=== PATIENT | male | born 1975 | race Caucasian/White ===

== ENCOUNTER 2023-12-26 21:37 | Emergency (ER) | payer OTHER, SELFPAY ==
[2023-12-26 21:43] VITALS: BP 140/104
[2023-12-26 21:55] LABS: % Basophils 0.7 % (0-2); % Eosinophils 7.7 % (0-6); % Immature Granulocytes 0.2 % (0-0.5); % Lymphocytes 39.7 % (20.5-51.1); % Monocytes 8.4 % (1.7-9.3); % Neutrophils 43.3 % (42.2-75.2); Absolute Basophils 0.1 10^3/uL (0-0.2); Absolute Eosinophils 0.7 10^3/uL (0-0.7); Absolute Lymphocytes 3.4 10^3/uL (1.2-3.4); Absolute Monocytes 0.7 10^3/uL (0.1-0.6); Absolute Neutrophils 3.7 10^3/uL (1.4-6.5); Hemoglobin 16.5 g/dL (13.0-18.0); Mean Corp Hgb Conc. 37.5 g/dL (33.0-37.0); Mean Corpuscular Volume 85.4 fL (80.0-94.0); Mean Platelet Volume 8.9 fL (7.4-10.4); Nucleated Red Blood Cells % 0 % (-); Platelet Count 295 10^3/uL (130-400); Red Blood Cell Count 5.15 10^6/uL (4.70-6.10); Red Cell Dist. Width 11.6 % (11.5-14.5); White Blood Cell Count 8.4 10^3/uL (4.8-10.8)
[2023-12-26 22:09] LABS: ALT (SGPT) 46 U/L (0-50); AST (SGOT) 42 U/L (17-59); Albumin 4.6 g/dl (3.5-5.0); Alkaline Phosphatase 72 U/L (38-126); Blood Urea Nitrogen 16 mg/dl (9-20); Calcium 9.5 mg/dl (8.4-10.2); Carbon Dioxide 22 mmol/L (22-30); Chloride 105 mmol/L (98-107); Glucose 130 mg/dl (70-99); Potassium 3.9 mmol/L (3.5-5.1); Sodium 135 mmol/L (135-145); Total Bilirubin 0.6 mg/dl (0.2-1.3); Total Protein 7.6 g/dl (6.3-8.2); eGFR > 60.00
--- NOTE | 2023-12-27 00:19 | ED.GENMED ---
History of Present Illness
General
Chief Complaint: Abdominal Symptoms
Source: patient
Exam Limitations: none
Time Seen by Provider: 12/26/23 23:39
Travel History
Have you had any contact with someone who has COVID-19?: No
Do you have any symptoms of coronavirus? Fever > 100 degrees, chills, cough, shortness of breath, sore throat, loss of taste or smell, muscle aches, or headache?: No
History of Present Illness
History of Present Illness:
This is a 48 year old male that comes in with c/o cough. States that he has had this cough for over a week. States that he went to the ENT and was told that he had reflux. Patient was place on Prilosec BID. States that he does ok during the day and
then around 6:30pm he started again with the coughing. States that he was up last night from 12 midnight till 4am. States that he almost vomited. Then today he started again after dinner and he vomited. States that he had gone back to the ENT and
that was when he increased the Prilosec to BID, put him on Gabapentin 100mg daily and gave him Promethazine DM 5m at HS. States that this helped some but then tonight he vomtied, felt SOB and has a headache. Denies any fever, chills, chest pain, abd
pain, nausea, diarrhea, dizziness, urinary burning.
Past History
Past History
ED Past Medical History: GERD
ED Past Surgical History: None
Social History
Tobacco: Former smoker
Alcohol: Daily (Beer 10-12 cans)
Personal:
Living: with family
Review of Systems
Review of Systems
All Other Systems: ROS reviewed and negative except as documented in HPI and ROS
Constitutional: Reports no symptoms; Denies fever or chills
EENT: Reports no symptoms
Respiratory: Reports cough and trouble breathing
Cardiac: Reports no symptoms; Denies chest pain
ABD/GI: Reports vomiting; Denies abdominal pain, nausea or diarrhea
: Reports no symptoms; Denies dysuria, frequency or urgency
Musculoskeletal: Reports no symptoms
Skin: Reports no symptoms
Neurological: Reports headache; Denies dizzy
Psychiatric: Reports no symptoms
Phy Exam
General Physical Exam
General Presentation: no apparent distress
General age: appears stated age
General Skin: warm and dry
General Habitus: normal
General Mental: alert
General Hydration: appears well hydrated
ENT Exam
ENT Exam: TM's normal, pharynx normal and neck supple
Eye Exam
Eye Exam: EOMI
Cardiovascular Exam
Cardiovascular Exam: regular rate/rhythm, no edema, no murmur and normal peripheral pulses
Pulmonary Exam
Pulmonary Exam: no respiratory distress, no rales, chest non tender, no crackles, no rhonchi and other (Faint wheezing noted with Dry cough)
Gastrointestinal Exam
Gastrointestinal Exam: normal bowel sounds, non tender, soft, no organomegaly, no pulsatile mass and non distended
Musculoskeletal Exam
Musculoskeletal Exam: full ROM and no edema
Skin Exam
Skin Exam: normal color, warm/dry, no rash and no petechia
Psychiatric Exam
Psychiatric Exam: normal mood/affect
Course
Orders/Labs/Results
Orders:
Orders
12/26/23 21:50
CMP [Comprehensive Metabolic Panel] Urgent
Complete Blood Count/With Diff Urgent
Lipase Urgent
Comment: ADD ON
12/26/23 23:40
Add On- LAB Urgent
Tests Added?: lipase
12/26/23 23:51
Dexamethasone Sod Phosphate [Decadron] 20 mg IV NOW STA
Ipratropium/Albuterol Sulfate [Duoneb] 3 ml INH R NOW ONE
12/26/23 23:52
D-Dimer Urgent
12/27/23 00:00
CR Chest - 2 Views Urgent
Reason For Exam: Cough, SOB
12/27/23 01:15
CT Chest Pe Study Urgent
Comment:
Reason For Exam: sob, cOUGH, ELEVATED d-DIMER
12/27/23 02:42
Acetaminophen [Tylenol] 1,000 mg PO NOW STA
Ketorolac [Toradol] 30 mg IV NOW STA
Abnormal Lab Results
12/26/23 12/27/23
21:50 00:14
MCH 32.0 H pg
(27.0-31.0)
MCHC 37.5 H g/dL
(33.0-37.0)
Absolute Monos (auto) 0.7 H 10^3/uL
(0.1-0.6)
Eosinophils % 7.7 H %
(0-6)
D-Dimer 0.56 H ug/mlFEU
(0.00-0.50)
Glucose 130 H mg/dl
(70-99)
12/26/23 21:50
12/26/23 21:50
glucose nonfasting, D-dimer slightly elevated. Lipase normal at 138.
Vital Signs
Initial and Last Documented VS:
Initial Vital Signs
Temp Pulse Resp BP Pulse Ox
98.2 F 104 26 140/104 97
12/26/23 21:43 12/26/23 21:43 12/26/23 21:43 12/26/23 21:43 12/26/23 21:43
Last Documented Vital Signs
Temp Pulse Resp BP Pulse Ox
98.2 F 104 26 140/104 97
12/26/23 21:43 12/26/23 21:43 12/26/23 21:43 12/26/23 21:43 12/26/23 23:26
MDM/Problems Addressed
Differential Diagnosis Includes:
Wheezing, PE,
MDM/Problems Addressed:
This is a 48 year old male that comes in with c/o cough and SOB. States that this noriega been going on for over a week. States that he has seen the ENT specialist twice. Patient is taking Prilosec BID, Gabapentin daily and Promethazine DM 5 mg before
bed.
Will check labs, Chest x-ray, Give Duo neb, steroids
Back into see patient. patient states that he is feeling a little better. Explained that his D-dimer is a little elevated so will get a CT of the chest. Explained that it may be elevated due to inflammation. Will place patient on Steroids for home.
Into see patient. Explained that the CT of the chest is negative for any PE. There is some left sided nodules noted that could be infectious or Inflammatory. They are most likely inflammatory as patient has wheezing. Patient does not have a fever
and WBC are normal. Will start patient on a steroid for the next 5 days. Will give patient a prescription fo Albuterol inhaler and encouraged patient to stay away form caffeine. Will also stop the Prilosec and place patient on Protonix. Patient to
increased his water intake and follow up with the Family doctor. Return with any concerns.
Chronic conditions affecting care:
NA
Acute Exacerbation and/or Progression of Chronic Illness:
NA
*Radiology
Radiology exam reviewed: radiology read reviewed (CT CHEST NIGHT HAWK-Adequate technical study. No pulmonary embolism. No thoracic aortic aneurysm or acute dissection. Scattered pulmonary nodules within the left lower lobe, may be infectious or
inflammatory. Bibasilar atelectasis. Thickening of the airways. Incidentals: No acute osseous abnormality) and other (CT cont- no acute abnormality within the visualized abdomen. No thoracic lymphadenopathy or suspicious lymph nodes. )
*Pulse Oximetry
Patient hypoxic: no
*EKG
Interpreted by ED Provider?: NA
Rate: EKG- N/A
*Rocket Assembly Operator Interpretation
Rate: Rocket Assembly Operator- N/A
*Critical Care Note
Total Time (30-74mins, 75-104mins- exclusive of procedures): Not Applicable
ED Attending Note
-
Portions of this chart may have been created with voice recognition software.� Occasional wrong word or��sound alike� substitutions may have occurred due to the inherent limitations of voice recognition software.
Discharge Plan
Departure
Patient Disposition: Home (Routine Discharge)
Date of Disposition: 12/27/23
Time of Disposition: 02:31
Patient with high blood pressure during this ER visit?: No
Condition: Good
Covid-19: Not Applicable
Discharge Problem:
Bilateral wheezing, Cough
Instructions: Wheezing, Cough, Adult (DC)
Prescriptions:
New
prednisone 20 mg tablet
40 mg PO DAILY Qty: 10 0RF
pantoprazole [Protonix] 40 mg tablet,delayed release (DR/EC)
40 mg PO DAILY Qty: 30 0RF
albuterol sulfate [ProAir HFA] 90 mcg/actuation HFA aerosol inhaler
2 puff inhalation Q6H PRN (Reason: shortness of breath or wheezing) Qty: 6.7 0RF
Referrals:
Romie Hyatt DO [Family Provider] - Follow up in 2-3 days
Activity Restrictions/Additional Instructions:
As discussed, your blood work is normal. Your CT is negative for PE but there is some Nodules noted on the left lung base. This can be inflammatory or infectious. The fact that your White count is normal and you have no fever it is most likely
inflammatory. You have been given IV steroids here and a prescription for Steroids for home for the next 5 days. Please stop the Prilosec and start the Protonix to help with your Reflux. This is also just once daily. You may take this at Bedtime to
help prevent any reflux. Please stay away form any Caffeine as this worsens your Reflux. The last Prescription that has been sent to your Pharmacy is the Albuterol inhaler. Please use this for any wheezing, increased coughing or shortness of breath.
Follow up with the family doctor in the next 2- 3 days for recheck. Please try and cut back on your alcohol intake. Please increase your water intake to 8-8oz glasses daily. IF YOU HAVE ANY OTHER CONCERNS PLEASE RETURN TO THE EMERGENCY ROOM.
Interventions
Interventions:
*Risk Screen - Suicide Last Done: 12/26/23 21:43
*General Assessment Last Done: 12/26/23 23:26
*Neglect/Abuse Screening Last Done: 12/26/23 21:43
ED- Fall Risk Assessment Last Done: 12/26/23 23:26
*ED COVID-19 Vaccine History Last Done: 12/26/23 23:26
ZR-Rtkrul-Jwjoivfqmu Assessment Last Done: 12/26/23 23:26
ED- Pulmonary Assessment Last Done: 12/26/23 23:26
Discharge Date and Time
Print Language: MACEDONIAN
[2023-12-27 00:24] LABS: Lipase 138 U/L (23-300)
[2023-12-27] MEDS: DECADRON 20 MG IV (00:29)
[2023-12-27] MEDS: DUONEB 3 ML INH (00:29)
[2023-12-27 00:37] LABS: D-Dimer 0.56 ug/mlFEU (0.00-0.50)
[2023-12-27 01:52] VITALS: BP 118/72
[2023-12-27 02:00] VITALS: BP 119/81
[2023-12-27] MEDS: TYLENOL 1000 MG PO (02:55)
[2023-12-27] MEDS: TORADOL 30 MG IV (02:58)
[2023-12-27 03:00] VITALS: BP 122/78
[2023-12-27 03:15] VITALS: BP 122/78
--- NOTE | 2024-01-08 10:15 | OID.L.PAT ---
Pulmonary Nodule Pat Letter
- -
01/08/24
VANESSA ELDER
[address] [place] [address]
[place] [address]
Jose MENDEZ,
A pulmonary nodule was seen on an imaging study done by [facility]. This was reviewed by the [facility] Pulmonary Nodule Advisory Board and the following recommendation was made:
Recommendation: CT Chest in one year
If you have any questions, please do not hesitate to contact your primary care physician. If you are in need of a Physician, you can go to [email or web address] and click on 'Find a Provider'. Type 'Family Medicine' in the search.
Oncology Nurse Navigator
[facility]
[phone]
--- NOTE | 2024-01-08 10:19 | OID.L.REC ---
Pulmonary Nodule Follow Up
- Recommendation
01/08/24
Pulmonary Nodule Review Recommendations
Your patient, VANESSA ELDER, had a pulmonary nodule on an imaging study done on 12/27/2023 in the [facility].
This was reviewed by the [facility] Pulmonary Nodule Advisory Board and the following recommendation was made:
Recommendation: CT Chest in one year
If you have any questions please do not hesitate to contact us.
Sincerely,
Oncology Nurse Navigator
[facility]
[phone]
== END 2023-12-27 03:15 | disposition home or self-care (01) ==
LOC: EMR 21:37
PROVIDERS: Clinical Nurse Specialist Family Health; Emergency Medicine; EMERGENCY PHYSICIAN Student in an Organized Health Care Education/Training Program; FAMILY PHYSICIAN Family Medicine
DX: R05.9 Cough, unspecified (principal); R06.2 Wheezing; R22.2 Localized swelling, mass and lump, trunk; Z87.891 Personal history of nicotine dependence
CPT/HCPCS: 99285; 96374; 96375; 94640; 71046; 71275; 80053; 83690; 85025; 85379; Q9967

== ENCOUNTER 2024-08-25 10:59 | Emergency (ER) | payer BC, SELFPAY ==
[2024-08-25] VITALS (7 sets, daily range): BP systolic 100–128; BP diastolic 69–80
[2024-08-25 12:18] LABS: Urine Albumin Negative (Neg - Trace); Urine Bilirubin Negative (Negative); Urine Character Clear (Clear); Urine Color Yellow; Urine Glucose Negative (Negative); Urine Ketone 1+ (Negative); Urine Leukocyte Negative (Negative); Urine Nitrite Negative (Negative); Urine Occult Blood Negative (Negative); Urine Urobilinogen Negative (Neg - 1+)
[2024-08-25 12:19] LABS: % Basophils 0.5 % (0-2); % Eosinophils 1.6 % (0-6); % Immature Granulocytes 0.4 % (0-0.5); % Lymphocytes 25.7 % (20.5-51.1); % Neutrophils 63.8 % (42.2-75.2); Absolute Eosinophils 0.1 10^3/uL (0-0.7); Absolute Lymphocytes 2.1 10^3/uL (1.2-3.4); Absolute Monocytes 0.7 10^3/uL (0.1-0.6); Absolute Neutrophils 5.3 10^3/uL (1.4-6.5); Hematocrit 48.2 % (39.0-52.0); Hemoglobin 17.6 g/dL (13.0-18.0); Mean Corp Hgb Conc. 36.5 g/dL (33.0-37.0); Mean Corpuscular Hgb 32.2 pg (27.0-31.0); Mean Corpuscular Volume 88.3 fL (80.0-94.0); Mean Platelet Volume 8.9 fL (7.4-10.4); Nucleated Red Blood Cells % 0 % (-); Platelet Count 238 10^3/uL (130-400); Red Blood Cell Count 5.46 10^6/uL (4.70-6.10); Red Cell Dist. Width 11.9 % (11.5-14.5); White Blood Cell Count 8.3 10^3/uL (4.8-10.8)
[2024-08-25 12:33] LABS: ALT (SGPT) 33 U/L (0-50); AST (SGOT) 25 U/L (17-59); Albumin 4.4 g/dl (3.5-5.0); Alkaline Phosphatase 55 U/L (38-126); Blood Urea Nitrogen 14 mg/dl (9-20); Calcium 9.7 mg/dl (8.4-10.2); Carbon Dioxide 28 mmol/L (22-30); Chloride 104 mmol/L (98-107); Glucose 99 mg/dl (70-99); Lipase 74 U/L (23-300); Potassium 4.1 mmol/L (3.5-5.1); Sodium 140 mmol/L (135-145); Total Bilirubin 1.1 mg/dl (0.2-1.3); Total Protein 7.1 g/dl (6.3-8.2); eGFR > 60.00
[2024-08-25 12:45] LABS: Troponin I < 0.012 ng/ml
--- NOTE | 2024-08-25 14:30 | ED.GENMED ---
History of Present Illness
General
Chief Complaint: Flank Pain
Time Seen by Provider: 08/25/24 14:04
History of Present Illness
History of Present Illness:
Patient presents to the emergency department with severe right-sided lower chest/flank pain of sudden onset this morning at 10 AM. Patient states that he was putting car seats in his car when afterwards he suddenly had a severe right lower
rib/lateral thoracic pain. Pain radiated down right flank. Pain was worse with deep inspiration. Pain resolved on its own after arriving to the hospital. Denies any leg swelling. Denies any history of kidney stones or blood clots.
Past History
Past History
ED Past Medical History: GERD
ED Past Surgical History: None
Social History
Tobacco: Former smoker
Alcohol: Daily (Beer 10-12 cans)
Personal:
Living: with family
Phy Exam
Physical Exam
Physical Exam:
GENERAL APPEARANCE: NAD, well developed/ well nourished
EYES lids/conjunctiva normal
EARS/NOSE/THROAT Mucous membranes moist, uvula midline without oral pharyngeal erythema, exudate or swelling
HEAD/NECK normocephalic atraumatic, neck is supple.
RESPIRATORY respiratory effort normal, speaks in full sentences, no accessory muscle use. Lungs clear to auscultation without rhonchi, wheezes, rales
CARDIAC Regular rate and rhythm, no edema.
ABDOMINAL Soft, ND/NT. No pulsatile masses on exam, rebound tenderness, Elkins sign or pain over Mcburney's point.
MUSCLES/EXTREMITIES No abnormal range of motion, no swelling.
SKIN Warm, pink and dry. No rashes
NEUROLOGICAL Speech is clear and appropriate. Normal level of consciousness. 5/5 strength in all extremities.
PSYCH Normal mood and affect. Judgement/competence is appropriate
Course
Orders/Labs/Results
Orders:
Orders
08/25/24 11:05
Electrocardiogram (*1) Urgent
Reason for Study: Chest Pain
08/25/24 11:06
EKG- Treatment ONCE
08/25/24 12:04
Complete Blood Count/With Diff Urgent
Comprehensive Metabolic Panel Urgent
Lipase Urgent
Urinalysis Reflex To Culture Urgent
Date Specimen was Collected: 08/25/24
Time Specimen was Collected: 11:58
08/25/24 12:09
Troponin I Urgent
08/25/24 14:27
D-Dimer Urgent
08/25/24 15:01
CT Abd/pel Without Iv Or Oral Urgent
Comment:
Reason For Exam: R flank pain
Abnormal Lab Results
08/25/24
12:04
MCH 32.2 H pg
(27.0-31.0)
Absolute Monos (auto) 0.7 H 10^3/uL
(0.1-0.6)
Urine Ketones 1+ A
(Negative)
08/25/24 12:04
08/25/24 12:04
Vital Signs
Initial and Last Documented VS:
Initial Vital Signs
Temp Pulse Resp BP Pulse Ox
97.8 F 71 21 128/70 99
08/25/24 11:06 08/25/24 11:06 08/25/24 11:06 08/25/24 11:06 08/25/24 11:06
Last Documented Vital Signs
Temp Pulse Resp BP Pulse Ox
97.8 F 74 21 104/69 96
08/25/24 11:06 08/25/24 16:15 08/25/24 11:06 08/25/24 16:00 08/25/24 16:15
*Critical Care Note
Total Time (30-74mins, 75-104mins- exclusive of procedures): Not Applicable
ED Attending Note
ED Attending Note
ED Attending Note:
Patient symptoms concerning though they have resolved at this time. Differential includes thoracic radiculopathy, muscle spasm, kidney stone, pulmonary embolism, biliary pathology. Labs indicating normal white blood cell count, normal hemoglobin
and normal metabolic panel. Will send D-dimer. Plan to CT scan
patient feels much better at this time. Pain is positional. Suspect MSK pain. Will start NSAID and instruct close outpatient follow up
-
Portions of this chart may have been created with voice recognition software.� Occasional wrong word or��sound alike� substitutions may have occurred due to the inherent limitations of voice recognition software.
Discharge Plan
Departure
Patient Disposition: Home (Routine Discharge)
Date of Disposition: 08/25/24
Time of Disposition: 17:37
Patient with high blood pressure during this ER visit?: No
Discharge Problem:
Acute flank pain
Instructions: Flank Pain (DC)
Prescriptions:
New
naproxen 500 mg tablet
500 mg PO BID Qty: 14 0RF
No Action
prednisone 20 mg tablet
40 mg PO DAILY Qty: 10 0RF
pantoprazole [Protonix] 40 mg tablet,delayed release (DR/EC)
40 mg PO DAILY Qty: 30 0RF
albuterol sulfate [ProAir HFA] 90 mcg/actuation HFA aerosol inhaler
2 puff inhalation Q6H PRN (Reason: shortness of breath or wheezing) Qty: 6.7 0RF
Referrals:
Romie Hyatt DO [Family Provider] -
Activity Restrictions/Additional Instructions:
follow up with your doctor in the next week for recheck
return to ER if worse
Interventions
Interventions:
*Risk Screen - Suicide Last Done: 08/25/24 12:02
*General Assessment Last Done: 08/25/24 12:02
*Neglect/Abuse Screening Last Done: 08/25/24 12:02
*ED COVID-19 Vaccine History Last Done: 08/25/24 12:02
*Nursing Disposition Last Done: 08/25/24 17:49
OW-Apmoqp-Nswzjnczcx Assessment Last Done: 08/25/24 12:02
ED-Male Genitourinary Assessment Last Done: 08/25/24 12:02
Discharge Date and Time
Discharge Date/Time: 08/25/24 17:50
Print Language: KITTITIAN
[2024-08-25 14:47] LABS: D-Dimer 0.36 ug/mlFEU (0.00-0.50)
== END 2024-08-25 17:50 | disposition home or self-care (01) ==
LOC: EMR 10:59
PROVIDERS: Emergency Medicine; EMERGENCY PHYSICIAN Emergency Medicine; FAMILY PHYSICIAN Family Medicine
DX: R10.9 Unspecified abdominal pain (principal); K21.9 Gastro-esophageal reflux disease without esophagitis; Z87.891 Personal history of nicotine dependence
CPT/HCPCS: 99284; 74176; 80053; 81003; 83690; 84484; 85025; 85379; 93005